=== PATIENT | male | born 1940 | race Caucasian/White ===

== ENCOUNTER 2017-11-24 05:15 | Inpatient (IN) | payer OTHER ==
--- NOTE | 2017-10-15 11:46 | PAT Medication Instructions ---
Service Date Oct 15, 2017. Current Home Medication List Amlodipine (Norvasc), 5 MG PO QAM Ascorbic Acid (Vitamin C), 1 TAB PO QAM Aspirin (Aspirin Ec), 81 MG PO QDD Brinzolamide Oph (Azopt Oph), 1 DROPS OP BID Cinnamon (Cinnamon Extract), 1 CAP PO QAM Coenzyme Q10 (Ubidecarenone) (Coq10), 1 CAP PO QDD Cranberry (Vaccinium Macrocarp (Cranberry), Unknown Dose PO QAM Dorzolamide Hcl (Trusopt Oph), 1 DROPS OP BID Finasteride (Proscar), 5 MG PO QDL Fish Oil ([place]-3), 1 CAP PO QPM Garlic (Garlic), 600 MG PO QAM Latanoprost (Xalatan 0.005% Oph Brigitte), 1 DROPS OP QAM Losartan Potassium (Losartan Potassium), 100 MG PO QAM Misc Natural Products (Lutein 20), 1 CAP PO QPM Multivitamin (Multivitamin), 1 TAB PO QAM Psyllium (Metamucil), 1 DOSE PO UD PRN for QAM Saccharomyces Boulardii (Probiotic), Unknown Dose PO QAM Simvastatin (Zocor), 20 MG PO QPM Tamsulosin HCl (Tamsulosin HCl), 1 CAP PO QAM [Reflux Med ], Unknown Dose PO QAM Medication Instructions For Your Scheduled Surgery - Hold the following medications 2 weeks prior to surgery: Cinnamon (Cinnamon Extract), 1 CAP PO QAM Coenzyme Q10 (Ubidecarenone) (Coq10), 1 CAP PO QDD Cranberry (Vaccinium Macrocarp (Cranberry), Unknown Dose PO QAM Fish Oil ([place]-3), 1 CAP PO QPM Garlic (Garlic), 600 MG PO QAM Misc Natural Products (Lutein 20), 1 CAP PO QPM - Hold the following medications the morning of surgery: Ascorbic Acid (Vitamin C), 1 TAB PO QAM Losartan Potassium (Losartan Potassium), 100 MG PO QAM Multivitamin (Multivitamin), 1 TAB PO QAM Psyllium (Metamucil), 1 DOSE PO UD PRN for QAM Saccharomyces Boulardii (Probiotic), Unknown Dose PO QAM Tamsulosin HCl (Tamsulosin HCl), 1 CAP PO QAM - Take the following medications the morning of surgery with a sip of water: Amlodipine (Norvasc), 5 MG PO QAM Brinzolamide Oph (Azopt Oph), 1 DROPS OP BID (bring this with you to the hospital) Dorzolamide Hcl (Trusopt Oph), 1 DROPS OP BID (bring this with you to the hospital) Latanoprost (Xalatan 0.005% Oph Brigitte), 1 DROPS OP QAM (bring this with you to the hospital) [Reflux Med ], Unknown Dose PO QAM - Take the following medications as scheduled the night before surgery: Aspirin (Aspirin Ec), 81 MG PO QDD Brinzolamide Oph (Azopt Oph), 1 DROPS OP BID Dorzolamide Hcl (Trusopt Oph), 1 DROPS OP BID Finasteride (Proscar), 5 MG PO QDL Simvastatin (Zocor), 20 MG PO QPM If you have any questions please call us at [phone] or [phone] or [phone]
--- NOTE | 2017-10-15 12:38 | DIAGNOSTIC IMAGING REPORT ---
CHEST 2 VIEWS ROUTINE HISTORY: 77 years-old Male PAT preoperative exam. No acute chest complaints COMPARISON: Chest radiograph 11/30/2008, CT chest 09/02/2009 TECHNIQUE: PA and lateral views of the chest FINDINGS: Cardiac silhouette is mildly enlarged, unchanged. Atherosclerosis of the aorta. There is no pneumothorax, pleural effusion, focal airspace consolidation or overt pulmonary edema. Mild right hemidiaphragmatic elevation. Postoperative changes about the left humeral head. Degenerative changes of the spine and shoulders. IMPRESSION: No acute process. The above report was generated using voice recognition software. It may contain grammatical, syntax or spelling errors. Electronically signed by: Saravanan Camejo M.D. 10/15/2017 12:36 PM Dictated Date/Time: 10/15/2017 12:34 PM
[2017-10-15 12:44] LABS: BASO % 0.6 %; BASO ABS # 0.05 K/uL (0-0.2); EOS % 2.2 %; HEMATOCRIT 38.7 % (42-52); HEMOGLOBIN 13.7 g/dL (14.0-18.0); IG# 0.02 K/uL (0.00-0.02); LYMPH % 24.9 %; LYMPH ABS # 2.25 K/uL (1.2-3.4); MEAN CELL VOLUME 88.8 fL (80-100); MEAN CORPUSCULAR HEMOGLOBIN 31.4 pg (25-34); MEAN CORPUSCULAR HGB CONC 35.4 g/dl (32-36); MONO % 7.2 %; MONO ABS # 0.65 K/uL (0.11-0.59); NEUT % 64.9 %; NEUT ABS # 5.86 K/uL (1.4-6.5); PLATELET COUNT 278 K/uL (130-400); RED CELL DISTRIBUTION WIDTH CV 12.3 % (11.5-14.5); RED CELL DISTRIBUTION WIDTH SD 39.4 fL (36.4-46.3); WHITE BLOOD COUNT 9.03 K/uL (4.8-10.8)
[2017-10-15 13:00] LABS: PTT PATIENT 23.6 SECONDS (21.0-31.0)
[2017-10-15 13:27] LABS: HEMOGLOBIN A1C 6.6 % (4.5-5.6)
[2017-10-15 13:43] LABS: ALBUMIN 3.7 gm/dl (3.4-5.0); CALCIUM 8.8 mg/dl (8.5-10.1); CREATININE 0.81 mg/dl (0.60-1.40); POTASSIUM 4.2 mmol/L (3.5-5.1)
--- NOTE | 2017-11-23 14:28 | HISTORY & PHYSICAL EXAMINATION ---
DATE OF ADMISSION: 11/24/2017 CHIEF COMPLAINT: Chronic left hip pain. HISTORY OF PRESENT ILLNESS: This is a 77-year-old male patient of Dr. Roberts who is complaining of chronic left hip pain, longstanding, now progressively has been getting worse. The patient has failed conservative treatment including the use of [id number] analgesics and physical therapy. He has been diagnosed with end-stage osteoarthritis per clinical and radiographic exams. The patient has increased pain with weightbearing activities, and his pain does interfere with his activities of daily living. PAST MEDICAL HISTORY: Hypertension, hypercholesterolemia, osteoarthritis, sciatica, prostate cancer, BPH. SOCIAL HISTORY: Nonsmoker, nondrinker. PAST SURGICAL HISTORY: Prostate surgery, right hip surgery, and left shoulder surgery. FAMILY HISTORY: Noncontributory. REVIEW OF SYSTEMS: Chronic left hip pain, otherwise denies any shortness of breath, chest pain, nausea, vomiting, or any other joint complaints. MEDICATIONS: 1. Amlodipine 5 mg q.a.m. 2. Losartan 100 mg q.a.m. 3. Tamsulosin 0.4 mg one-half hour before breakfast daily. 4. Latanoprost ophthalmic solution 0.005%, both eyes daily. 5. Dorzolamide 2% ophthalmic 2 drops in both eyes b.i.d. 6. Finasteride 5 mg daily. 7. Simvastatin 20 mg daily. 8. Sherlyn Vitamin C 500 mg daily. 9. Cinnamon 500 mg daily. 10. Garlic 600 mg daily. 11. One multivitamin daily. 12. Probiotic 10 daily. 13. Cranberry 25,000 mg daily. 14. Aspirin 81 mg daily. 14. [place] 3 fish oil 1000 mg daily. 15. Lutein 20 mg daily. 16. CoQ10 of 100 mg daily. ALLERGIES: No known drug allergies. PHYSICAL EXAMINATION: GENERAL: Well-developed and well-nourished 77-year-old male, in no acute distress. He is alert and oriented x3 and pleasant. HEENT: He is normocephalic and atraumatic. Extraocular motions are intact. Pupils equal and reactive to light. HEART: Regular rate and rhythm. No murmurs appreciated. RESPIRATORY: Lungs are clear. GASTROINTESTINAL: Abdomen is soft and nontender. Bowel sounds are present. MUSCULOSKELETAL: Left hip reveals no flexion contracture. He has pain with passive internal and external rotation at 90 degrees as well as pain with passive log rolling. The patient has 4/5 strength in the hip with pain. NEUROLOGIC: Neurovascularly intact in the left lower extremity. DIAGNOSES: Left hip end-stage osteoarthritis, hypertension, hypercholesterolemia, borderline diabetes, sciatica, prostate cancer, BPH. PLAN: The patient was advised of his diagnosis. Indications, risks, benefits, postop course have all been reviewed. The patient wished to proceed with a left total hip arthroplasty. Necessary consent forms and preoperative testing clearances will be obtained.
[~2017-11-24] VITALS: Ht 167.6 cm; Wt 84.1 kg
[2017-11-24] VITALS (8 sets, daily range): BP systolic 137–185; BP diastolic 64–90; PULSE 57–72; TEMP 36.5; O2SAT 95–99; Ht 167.6 cm; Wt 84.1 kg
[~2017-11-24 05:15] MED LIST: ACETAMINOPHEN 500 MG TAB PO SCH; AMLO-110 PO; ASCA500 PO; ASPI81TA28 PO; BRIN1SUS OP; CEFAZOLIN 2000MG IV PUSH 15 ML IV SCH; CINN500C13 PO; COEN100C7 PO; CRAN500C2 PO; CZR50 PO; CeleBREX 200 MG CAP PO SCH; DORZ2SOL19 OP; FAMOTIDINE 20 MG TAB PO SCH; FINA5TAB PO; FLM4 PO; GABAPENTIN 300 MG CAP PO SCH; GARL1200 PO; LACTATED RINGER'S 1000ML 1,000 ML IV SCH; LACTATED RINGER'S 1000ML 500 ML IV SCH; LATA0.5S OP; METOCLOPRAMIDE HCL 10 MG TAB PO SCH; MISC1CAP58 PO; MULT-506 PO; OMEG10007 PO; PSYL48.59 PO; REFLUX MED PO; ROPIVACAINE 5MG/ML 30 ML 150 MG, BUPIVACAINE 0.5% MPF INJ 30 ML, EpINEphrine HCL INJ 0.... INFIL SCH; SACC250C11 PO; SIMV10TA2 PO; TRANEXAMIC ACID INJ 1,000 MG x 1 Bag Intra-Op IV SCH; TRANEXAMIC ACID INJ 1,000 MG x 1 Bag Preop IV SCH
[2017-11-24] MEDS ORDERED: CEFAZOLIN 2000MG IV PUSH 15 ML IV SCH (06:00)
[2017-11-24] MEDS ORDERED: GABAPENTIN 300 MG CAP PO SCH (06:00)
[2017-11-24] MEDS ORDERED: ACETAMINOPHEN 500 MG TAB PO SCH (06:00)
[2017-11-24] MEDS ORDERED: ROPIVACAINE 5MG/ML 30 ML 150 MG, BUPIVACAINE 0.5% MPF INJ 30 ML, EpINEphrine HCL INJ 0.... INFIL SCH ×7 (06:00)
[2017-11-24] MEDS ORDERED: LACTATED RINGER'S 1000ML 500 ML IV SCH (06:00)
[2017-11-24] MEDS ORDERED: LACTATED RINGER'S 1000ML 1,000 ML IV SCH (06:00)
[2017-11-24] MEDS ORDERED: FAMOTIDINE 20 MG TAB PO SCH (06:00)
[2017-11-24] MEDS ORDERED: METOCLOPRAMIDE HCL 10 MG TAB PO SCH (06:00)
[2017-11-24] MEDS ORDERED: CeleBREX 200 MG CAP PO SCH (06:00)
[2017-11-24] MEDS: TRANEXAMIC ACID INJ 1,000 MG x 2 Bags IV SCH ×4 (06:30→07:09)
[2017-11-24] MEDS ORDERED: BUPIVACAINE 0.5 % 5 MG/1 ML PF 10ML VIAL ONE (06:31)
[2017-11-24] MEDS ORDERED: MIDAZOLAM HCL 1 MG/ML 2ML VIAL ONE (06:49)
[2017-11-24] MEDS ORDERED: FENTANYL CITRATE INJ 50 MCG/1 ML 2 ML VIAL ONE (06:49)
[2017-11-24] MEDS ORDERED: BACITRACIN 50000 UNIT VIAL ONE (06:55)
[2017-11-24] MEDS ORDERED: ORTHO JOINT ANESTHETIC ONE (06:55)
[2017-11-24] MEDS ORDERED: POVIDONE-IODINE OP SOLN 30 ML BTL ONE (06:55)
--- NOTE | 2017-11-24 07:11 | History & Physical Bridge Note ---
H&P Re-Evaluation Bridge Note: I have examined the patient, reviewed the History & Physical and in the interval since the performance of the History & Physical I have noted the following changes of clinical significance: No changes noted
[2017-11-24] MEDS ORDERED: PROPOFOL IV EMULSION 10 MG/ML 20 ML VIAL ONE (08:06)
[2017-11-24] MEDS ORDERED: MEPERIDINE HCL 25 MG/ML CARP IV PRN (09:15)
[2017-11-24] MEDS ORDERED: ATROPINE SULFATE 0.1 MG/ML 5ML SYR IV PRN (09:15)
[2017-11-24] MEDS ORDERED: LABETALOL HCL IV 5 MG/ML 20ML IV PRN (09:15)
[2017-11-24] MEDS ORDERED: HYDROmorphone INJ 2 MG/ML SYR/VIAL IV PRN (09:15)
[2017-11-24] MEDS ORDERED: EpHEDrine SULFATE INJ 50 MG/ML AMP IV PRN (09:15)
[2017-11-24] MEDS ORDERED: ONDANSETRON INJ 2 MG/ML 2 ML VIAL IV PRN ×2 (09:15→10:30)
[2017-11-24] MEDS ORDERED: FENTANYL CITRATE INJ 50 MCG/1 ML 2 ML VIAL IV PRN (09:15)
--- NOTE | 2017-11-24 09:56 | [facility] Post Operative Brief Note ---
Immediate Operative Summary Operative Date November 24, 2017. Pre-Operative Diagnosis Left Hip End Stage Osteoarthritis Post-Operative Diagnosis Left Hip End Stage Osteoarthritis Procedure(s) Performed Left Total Hip Arthroplasty-Uncemented Surgeon Dr. Sung Roberts Generating Plant Superintendent Surgeon(s) David Amado PA-C Estimated Blood Loss 125 ml Findings Consistent with Post-Op Diagnosis Specimens A. Left Femoral Head Drains 2 hemovac Anesthesia Type Spinal MAC Complication(s) none
--- NOTE | 2017-11-24 10:13 | [facility] Operative Report ---
Operative Report Operative Date November 24, 2017. Pre-Operative Diagnosis Left Hip End Stage Osteoarthritis Post-Operative Diagnosis Same Procedure(s) Performed Left total hip arthroplasty Surgeon Dr. Sung Roberts Band Straightener Surgeon(s) David Amado PA-C Estimated Blood Loss 125 ml Findings Osteoarthritis left hip with some protrusio type pattern medial wear acetabulum and femoral head with femoral neck osteophytes and loose body. Specimens A. Left Femoral Head Drains 2 hemovac Anesthesia Spinal sedation orthomix Complication(s) None Disposition Recovery Room / PACU Indications Failed conservative management moderately severe left hip osteoarthritis. X- rays demonstrate significant hip joint space narrowing close to [id number] with protrusio type medial wear pattern. History of prior successful right hip replacement in the past. Description of Procedure Patient taken to the operating room and anesthetized under spinal anesthesia. Patient was placed supine on the operating table. Exam of the involved extremity demonstrated good hip flexion to about 110 with limited internal rotation and limited abduction. Patient is a thin individual..The patient was placed on a sacral pad and the involved leg was placed on a foot bump to flex knee 90 and hip 60. I placed a towel under his lumbar spine to support the lumbar region. A Perry-type approach was performed to the left hip. A longitudinal lateral incision was made over the hip. The skin was incised sharply. The fat was divided down to the fascia. Subcutaneous bleeders are cauterized. Trochanteric bursa was resected. A split was made in the gluteus medius muscle between the anterior 40% and posterior 60%. The minimus was divided longitudinally reflected off the underlying capsule. The capsule was incised down to the hip joint. Intra-articular findings demonstrated more of a medial protrusio type pattern of wear with articular erosion and femoral neck osteophytes and a very large labrum.. An incision was made through the gluteus medius leaving a cuff of tendon for repair on the greater trochanter. The hip was dislocated with use of bone hook and with flexion and external rotation of the hip. The femoral neck cut was made approximately 15 mm proximal to the lesser trochanter in neutral anteversion. Head and neck fragment were removed. A self-retaining superior tractor was impacted into the ilium, a blunt Beck retractor was placed anteriorly a double angled inferior retractor was placed on the ischium. The acetabular labrum was resected all osteophytes were resected.The soft tissue in the acetabular fossa was resected. An anterior capsular release was performed. Some the capsule was resected for exposure. The first reamer was used to medialize reaming to the inner table and then sequential reamers for the acetabulum were used in 2 mm increments up to a size 56 mm. I used the [employer] total hip arthroplasty system using a PSL type cup. Trial reduction demonstrated a 56 millimeter cup was the appropriate size and fit. The placement of the final implant was performed after irrigating the acetabulum with antibiotic solution with pulsatile lavage. The position of the cup was approximately 15 anteversion 45 abduction. Good fixation was performed. 2 screws were placed in the posterior superior quadrant for further fixation through the cup. The acetabular liner was impacted into position. The 36 mm 10 high wall acetabular liner was used. Retractors removed and attention was taken to the femur. The femur was exposed with flexion external rotation. Canal reamer was used followed by sequential broaches up to a size 4. This had a good fit and fill. Trial reduction was performed with a 127 neck angle based on preoperative templating. A + 0 neck length gave equal leg lengths and stable range of motion through full flexion flexion adduction and internal rotation and extension and external rotation. The trials removed and after irrigation again and the final implant was impacted which was the Accolade 2 size 4. The [employer] ceramic head size 36 was used. After final implants replaced the reduction was noted to be stable. 2 drains were placed deep. These were brought out laterally and connected to Hemovac. The minimus was closed with interrupted [id number] #1 Vicryl sutures. The medius was closed with transosseous #5 FiberWire sutures using John Tone suture technique. Lateral row soft tissue repair was performed with figure of 8 #2 FiberWire sutures. The medius split was closed with interrupted figure-of- eight #1 Vicryl sutures. The vastus lateralis was closed with interrupted figure of eight #1Vicryl sutures. The fascia jyoti was closed with interrupted figure of eight #1 Vicryl sutures. The fat was closed with [id number] #2 Vicryl sutures. Skin was closed with terry and sterile dressings were applied. The patient tolerated procedure well. David RANDOLPH my physician assistant head cashier assisted me in the procedure with patient positioning And draping soft tissue retraction instrument management suture management and assisted in the outer layer closure and will participate in the postoperative care the patient. I attest to the content of the Intraoperative Record and any orders documented therein. Any exceptions are noted below.
[2017-11-24] MEDS ORDERED: ZOLPIDEM TARTRATE 5 MG TAB PO PRN (10:30)
[2017-11-24] MEDS ORDERED: MoRPHine SULFATE 4 MG/ML 1 ML CARP\\VIAL IV PRN (10:30)
[2017-11-24] MEDS ORDERED: METOCLOPRAMIDE HCL INJ 5 MG/ML 2 ML VIAL IV PRN (10:30)
[2017-11-24] MEDS ORDERED: TRAMADOL HCL 50 MG TAB PO PRN (10:30)
[2017-11-24] MEDS ORDERED: BISACODYL 10 MG SUPP PR PRN (10:30)
[2017-11-24] MEDS ORDERED: SOD PHOSPHATE/SOD BIPHOSPHATE ENEMA 132 ML BTL PR PRN (10:30)
[2017-11-24] MEDS ORDERED: MAGNESIUM HYDROXIDE SUSP 30 ML UDC PO PRN (10:30)
[2017-11-24] MEDS ORDERED: PSYLLIUM 58.6% PWD PACK S\\F PO PRN (10:30)
--- NOTE | 2017-11-24 10:45 | Anesthesiology Progress Note ---
Anesthesia Post Op Note Date & Time November 24, 2017 at 10:44 Vital Signs Pain Intensity: 0 Vital Signs Past 12 Hours Date Time Temp Pulse Resp B/P (MAP) Pulse Ox O2 Delivery O2 Flow Rate FiO2 11/24/17 10:39 36.4 98 Room Air 11/24/17 10:37 57 21 11/24/17 10:37 57 21 98 11/24/17 10:36 158/73 11/24/17 10:32 61 22 157/59 99 11/24/17 10:32 60 22 11/24/17 10:27 59 18 134/65 98 11/24/17 10:27 59 18 11/24/17 10:22 56 17 11/24/17 10:22 58 17 99 11/24/17 10:21 57 18 159/72 99 11/24/17 10:21 55 18 11/24/17 10:16 58 25 11/24/17 10:16 61 25 137/59 98 11/24/17 10:12 141/72 11/24/17 10:11 36.1 56 12 141/72 95 Nasal Cannula 2 11/24/17 10:11 60 19 96 11/24/17 10:11 60 19 11/24/17 05:45 36.5 66 20 185/90 99 Room Air Notes Neuraxial Anesthesia: was administered, sensory block is resolving
--- NOTE | 2017-11-24 10:55 | DIAGNOSTIC IMAGING REPORT ---
L PELVIS/UNILATERAL HIP 1 VIEW CLINICAL HISTORY: 77 years-old Male presenting with IN PACU - A/P PELVIS and LATERAL HIP INCLUDING ALL OF IMPLANT. TECHNIQUE: Frontal and crosstable lateral views of the left hip were obtained. COMPARISON: 11/28/2008. FINDINGS: Postsurgical changes of total left hip arthroplasty. A surgical drain and skin terry are in place. Expected soft tissue emphysema. Redemonstration of postsurgical changes of right total hip arthroplasty. The bony pelvis and proximal femurs are intact. No evidence of a periprosthetic fracture. No malalignment. IMPRESSION: 1. Expected postsurgical appearance status post total left hip arthroplasty. 2. Redemonstration of total right hip arthroplasty. Electronically signed by: Israel Richards M.D. 11/24/2017 10:54 AM Dictated Date/Time: 11/24/2017 10:53 AM
[2017-11-24] MEDS: OXYCODONE HCL IR 5 MG TAB (IMMEDIATE RELEASE) PO PRN ×3 (12:03→19:41)
[2017-11-24] MEDS ORDERED: SODIUM CHLORIDE 0.9% 1000ML 1,000 ML IV SCH (12:10)
[2017-11-24] MEDS ORDERED: GLUCAGON FOR INJ 1 MG VIAL IM PRN (12:30)
[2017-11-24] MEDS ORDERED: DEXTROSE 50% 50 ML SYR IV PRN (12:30)
[2017-11-24] MEDS ORDERED: CARBOHYDRATES FOR HYPOGLYCEMIA PO PRN (12:30)
[2017-11-24] MEDS ORDERED: GLUCOSE 40% GEL 15 GM TUBE PO PRN (12:30)
[2017-11-24] MEDS ORDERED: GLUCOSE 10 TABS/TUBE PO PRN (12:30)
--- NOTE | 2017-11-24 12:43 | Medical Consult ---
Consultation Date of Consultation: November 24, 2017. Attending Physician: Sung Roberts M.D. Reason for Consultation: post-op medical mgmt History of Present Illness This is a 77yo M with a PMH of HTN, HLD, DM II (diet controlled), BPH and osteoarthritis who is POD #0 s/p L RAMIREZ by Dr. Roberts. Patient is doing well post-operatively. States that hip pain is a 6/10 but received pain medication 10 minutes ago. Denies any, fever, chills, lightheadedness, headache, visual changes, sore throat, CP, SOB, abdominal pain, nausea, vomiting, dysuria or LE swelling. PCP is Carroll MILLER with [facility] in [place]. Has DM II that is diet controlled. Most recent hgb a1c was 6.6 in September 2017. Past Medical/Surgical History Medical Problems: (1) Aortic regurgitation Status: Chronic (2) BPH (benign prostatic hyperplasia) Status: Chronic (3) Degenerative joint disease of left hip Status: Chronic (4) Diabetes mellitus type II, controlled Status: Chronic (5) H/O malignant neoplasm of prostate Status: Chronic (6) HLD (hyperlipidemia) Status: Chronic (7) HTN (hypertension) Status: Chronic (8) Osteoarthritis Status: Chronic Surgical Problems: (1) Status post right hip replacement Status: Resolved Family History Diabetes mellitus Hypertension Social History Smoking Status: Never Smoker Alcohol Use: none Marital Status: Housing Status: lives with significant other Allergies Coded Allergies: Lisinopril (Verified Adverse Reaction, Unknown, BAD COUGH, 11/24/17) Home Medications Reported Home Medications Medications Dose Route/Sig Max Daily Dose Days Date Category Dose Instructions Metamucil (Psyllium) 48.57 % Pow 1 Dose PO UD PRN 10/15/17 Reported [Reflux Med ] Unknown Strength Unknown Dose PO QAM 10/15/17 Reported PT NOT SURE DETAILS OF MED - REPORTS TAKES MED FOR ACID REFLUX Coq10 (Coenzyme Q10 (Ubidecarenone)) 100 Mg Cap 1 Cap PO QDD 10/15/17 Reported Lutein 20 (Misc Natural Products) 1 Cap Cap 1 Cap PO QPM 10/15/17 Reported Cranberry (Cranberry (Vaccinium Macrocarp) Unknown Strength Cap Unknown Dose PO QAM 10/15/17 Reported Probiotic (Saccharomyces Boulardii) Unknown Strength Cap Unknown Dose PO QAM 10/15/17 Reported Garlic 1,200 Mg Cap 600 Mg PO QAM 10/15/17 Reported Cinnamon Extract (Cinnamon) 500 Mg Cap 1 Cap PO QAM 10/15/17 Reported Proscar (Finasteride) 5 Mg Tab 5 Mg PO QDL 10/15/17 Reported Trusopt Oph (Dorzolamide Hcl) 2 % Brigitte 1 Drops OP BID 10/15/17 Reported Xalatan 0.005% Oph Brigitte (Latanoprost) 0.005 % Brigitte 1 Drops OP QAM 10/15/17 Reported Tamsulosin HCl 0.4 Mg Cap 1 Cap PO QAM 10/15/17 Reported Norvasc (Amlodipine Besylate) 5 Mg Tab 5 Mg PO QAM 10/15/17 Reported Aspirin Ec (Aspirin) 81 Mg Tab 81 Mg PO QDD 10/15/17 Reported Losartan Potassium 50 Mg Tab 100 Mg PO QAM 10/15/17 Reported Multivitamin (Multivitamins) Tab 1 Tab PO QAM 10/15/17 Reported Vitamin C (Ascorbic Acid) 500 Mg Tab 1 Tab PO QAM 10/15/17 Reported Mutual-3 (Fish Oil) 1 Ea Cap 1 Cap PO QPM 11/14/08 Reported Zocor (Simvastatin) 10 Mg Tab 20 Mg PO QPM 11/14/08 Reported Current Inpatient Medications Current Inpatient Medications Medications (Trade) Dose Ordered Sig/Isabelle Route Start Time Stop Time Status Last Admin Dose Admin Lactated Ringer's 1,000 ml @ 15 mls/hr Q24H IV 11/24/17 06:00 11/25/17 05:59 11/24/17 05:52 15 MLS/HR Cefazolin Sodium 15 ml @ 3.75 mls/ min PREOP IV 11/24/17 06:00 11/24/17 18:00 Acetaminophen (Tylenol Tab) 1,000 mg PREOP PO 11/24/17 06:00 11/24/17 18:00 11/24/17 06:09 1,000 MG Celecoxib (CeleBREX CAP) 200 mg PREOP PO 11/24/17 06:00 11/24/17 18:00 11/24/17 06:09 200 MG Famotidine (Pepcid Tab) 20 mg PREOP PO 11/24/17 06:00 11/24/17 18:00 11/24/17 06:08 20 MG Gabapentin (Neurontin Cap) 300 mg PREOP PO 11/24/17 06:00 11/24/17 18:00 11/24/17 06:08 300 MG Metoclopramide HCl (Reglan Tab) 10 mg PREOP PO 11/24/17 06:00 11/24/17 18:00 11/24/17 06:08 10 MG Fentanyl Citrate (Fentanyl Inj) 50 mcg Q5M PRN IV 11/24/17 09:15 11/25/17 14:15 Hydromorphone HCl (Dilaudid Inj) 0.5 mg Q5M PRN IV 11/24/17 09:15 11/25/17 14:15 Meperidine HCl (Demerol Inj) 25 mg Q5M PRN IV 11/24/17 09:15 11/24/17 14:15 Ondansetron HCl (Zofran Inj) 4 mg ONE PRN IV 11/24/17 09:15 11/25/17 14:15 Labetalol HCl (Normodyne IV) 5 mg Q5M PRN IV 11/24/17 09:15 11/25/17 14:15 Ephedrine Sulfate (EpHEDrine SULFATE INJ) 5 mg Q5M PRN IV 11/24/17 09:15 11/25/17 14:15 Atropine Sulfate (Atropine Sulfate 0.1mg/ml Inj) 0.5 mg Q1M PRN IV 11/24/17 09:15 11/25/17 14:15 Amlodipine Besylate (Norvasc Tab) 5 mg QAM PO 11/25/17 09:00 12/25/17 08:59 Ascorbic Acid (Vitamin C Tab) 500 mg QAM PO 11/25/17 09:00 12/25/17 08:59 Dorzolamide HCl (Trusopt 2% Oph Soln) 1 drops BID OP 11/24/17 21:00 12/24/17 20:59 Finasteride (Proscar Tab) 5 mg QDL PO 11/24/17 12:30 12/24/17 12:29 Latanoprost (Xalatan Oph Soln) 1 drops QAM OP 11/25/17 09:00 12/25/17 08:59 Losartan Potassium (coZAAR TAB) 100 mg QAM PO 11/25/17 09:00 12/25/17 08:59 Simvastatin (Zocor Tab) 20 mg QPM PO 11/24/17 21:00 12/24/17 20:59 Tamsulosin HCl (Flomax Cap) 0.4 mg QAM PO 11/25/17 09:00 12/25/17 08:59 Psyllium Hydrophilic Mucilloid (Metamucil Powder) 1 pkt UD PRN PO 11/24/17 10:30 12/24/17 10:29 Sodium Chloride 1,000 ml @ 100 mls/hr Q10H IV 11/24/17 12:10 11/25/17 12:09 Celecoxib (CeleBREX CAP) 200 mg BID PO 11/24/17 21:00 12/24/17 20:59 Oxycodone HCl (Roxicodone Immediate Rel Tab) 1 TABLET FOR PAIN RATING... Q4H PRN PO 11/24/17 10:30 12/08/17 10:29 11/24/17 12:03 10 MG Morphine Sulfate (MoRPHine SULFATE INJ) as needed Q2H PRN IV 11/24/17 10:30 12/08/17 10:29 Acetaminophen (Tylenol Tab) 1,000 mg Q8 PO 11/24/17 14:00 12/24/17 13:59 Magnesium Hydroxide (Milk Of Magnesia Susp) 30 ml Q6H PRN PO 11/24/17 10:30 12/24/17 10:29 Bisacodyl (Dulcolax Supp) 10 mg DAILY PRN ME 11/24/17 10:30 12/24/17 10:29 Sodium Biphosphate/ Sodium Phosphate (Fleet Enema) 132 ml DAILY PRN ME 11/24/17 10:30 12/24/17 10:29 Docusate Sodium (coLACE CAP) 100 mg BID PO 11/24/17 21:00 12/24/17 20:59 Diphenhydramine HCl (Benadryl Cap) 25 mg Q8H PRN PO 11/24/17 10:30 12/24/17 10:29 Zolpidem Tartrate (Ambien Tab) 5 mg HSZ PRN PO 11/24/17 10:30 12/24/17 10:29 Multivitamins (Multivitamin Tab) 1 tab QAM PO 11/25/17 09:00 12/25/17 08:59 Ondansetron HCl (Zofran Inj) 4 mg Q6H PRN IV 11/24/17 10:30 12/24/17 10:29 Metoclopramide HCl (Reglan Inj) 10 mg Q6H PRN IV 11/24/17 10:30 12/24/17 10:29 Pantoprazole Sodium (Protonix Tab) 40 mg QAM PO 11/25/17 09:00 11/28/17 08:59 Tramadol HCl (Ultram Tab) 1 TABLET FOR PAIN RATING... Q4H PRN PO 11/24/17 10:30 12/24/17 10:29 Cefazolin Sodium 2000 mg/Syringe 15 ml @ 3.75 mls/ min Q8H IV 11/24/17 17:30 11/25/17 01:33 Aspirin (Ecotrin Tab) 81 mg BID PO 11/24/17 21:00 12/24/17 20:59 Insulin Aspart (novoLOG ASPART) SLIDING SCALE G... ACHS SC 11/24/17 12:00 12/24/17 11:59 Glucose (Glucose 40% Gel) 15-30 GRAMS 15 GRAMS... UD PRN PO 11/24/17 12:30 12/24/17 12:29 Glucose (Glucose Chew Tab) 4-8 Tablets 4 Tabl... UD PRN PO 11/24/17 12:30 12/24/17 12:29 Dextrose (Dextrose 50% 50ML Syringe) 25-50ML 25ML FOR ... UD PRN IV 11/24/17 12:30 12/24/17 12:29 Glucagon (Glucagon Inj) 1 mg UD PRN IM 11/24/17 12:30 12/24/17 12:29 Carbohydrates (Carbohydrates For Hypoglycemia) 15-30 GRAMS 15 grams if BSG 54-69... UD PRN PO 11/24/17 12:30 12/24/17 12:29 Review of Systems Ten systems reviewed and negative except as noted in the HPI. Physical Exam Date Time Temp Pulse Resp B/P (MAP) Pulse Ox O2 Delivery O2 Flow Rate FiO2 11/24/17 11:50 57 17 166/70 (102) 96 11/24/17 11:20 70 16 181/76 (111) 99 Room Air 11/24/17 10:55 99 Room Air 11/24/17 10:50 36.5 61 17 178/87 (117) 98 Room Air 11/24/17 10:50 98 Room Air 11/24/17 10:43 59 98 11/24/17 10:43 59 11/24/17 10:41 152/78 11/24/17 10:39 36.4 98 Room Air 11/24/17 10:38 56 18 11/24/17 10:38 55 18 98 11/24/17 10:37 57 21 11/24/17 10:37 57 21 98 11/24/17 10:36 158/73 11/24/17 10:32 61 22 157/59 99 11/24/17 10:32 60 22 11/24/17 10:27 59 18 134/65 98 11/24/17 10:27 59 18 11/24/17 10:22 56 17 11/24/17 10:22 58 17 99 11/24/17 10:21 57 18 159/72 99 11/24/17 10:21 55 18 11/24/17 10:16 58 25 11/24/17 10:16 61 25 137/59 98 11/24/17 10:12 141/72 11/24/17 10:11 36.1 56 12 141/72 95 Nasal Cannula 2 11/24/17 10:11 60 19 96 11/24/17 10:11 60 19 11/24/17 05:45 36.5 66 20 185/90 99 Room Air General Appearance: WD/WN, no apparent distress, + pertinent finding (resting comfortably) Head: normocephalic, atraumatic Eyes: normal inspection, PERRL, sclerae normal ENT: normal ENT inspection, hearing grossly normal, pharynx normal (moist mucous membranes ) Neck: supple, thyroid normal, trachea midline Respiratory/Chest: chest non-tender, lungs clear, normal breath sounds, no respiratory distress, no accessory muscle use Cardiovascular: regular rate, rhythm, no murmur, normal peripheral pulses Abdomen/GI: non tender, soft, no organomegaly Back: normal inspection Extremities/Musculoskelatal: normal inspection (L hip with surgical bandage. Clean, dry, intact. Drain visualized. ), no calf tenderness, normal capillary refill, no pedal edema, + pertinent finding (SCDs) Neurologic/Psych: no motor/sensory deficits, alert, normal mood/affect, oriented x 3 Skin: normal color, warm/dry Laboratory Results Last 24 Hours Test 11/24/17 05:26 11/24/17 10:30 Bedside Glucose 136 mg/dl 115 mg/dl Assessment & Plan This is a 77yo M with a PMH of HTN, HLD, DM II (diet controlled), BPH and osteoarthritis who is POD #0 s/p L RAMIREZ by Dr. Roberts. Left hip osteoarthritis POD #0 s/p L RAMIREZ: -Performed by Dr. Roberts -Doing well post-operatively -Per ortho for pain control, wound care, anticoagulation and activities -Monitor H&H, continue incentive spirometry, PT/OT when appropriate DM II: -A1c 6.6 in September 2017 -Diet controlled -Monitor HTN: -Slightly elevated 2/2 pain -Cont home amlodipine, losartan -Monitor and give additional agents if needed HLD: -Cont statin BPH: -Cont finasteride, tamsulosin PCP: ANGELA Hodges Dispo: Per ortho Patient seen in collaboration with Dr. Daley. Please see addendum. Thank you for this consultation. We will follow the patient with you during their hospital stay. You can reach a member of the [facility] Hospitalist Team 15/02 via pager @ [phone]. ATTENDING ADDENDUM Patient seen and examined, care coordinated with Aed Ordonez PA-C This is a 77-year-old male with medical history of hypertension and diet- controlled diabetes hyperlipidemia, underwent left total hip replacement surgery for end-stage osteoarthritis Patient had the surgery done approximately 8 AM today; postoperative day 0 Mentions pain is fairly well-controlled To 2 tablets of oxycodone earlier No complaint of shortness of breath, headache, chest heaviness Physical exam: Please refer to physical exam by Ade Ordonez PA-C ASSESSMENT AND PLAN HYPERTENSION Blood pressure is a significantly elevated with systolic 180 Patient's home medications include Patient took Norvasc 5 mg this a.m. preop as instructed Denies of any symptoms of headache heaviness or shortness of breath Reports he usually gets white coat hypertension/blood pressure always gets elevated in clinic visits Was anxious this morning for surgery Ordered to give losartan 100 mg tablet 1 now Continue Norvasc 5 mg daily/losartan 100 mg daily Repeat blood pressure in 1-1/2 hour As needed IV labetalol ordered by orthopedics STATUS POST LEFT HIP SURGERY Recovering well postop Continue management as per orthopedics Please refer to further documentation by Ade Ordonez PA-C for discussion of other chronic issues Mary Daley MD
[2017-11-24] MEDS ORDERED: AMLODIPINE BESYLATE 5 MG TAB PO ONE (13:05)
[2017-11-24] MEDS ORDERED: LOSARTAN POTASSIUM 50 MG TAB PO ONE (13:16)
[2017-11-24] MEDS: FINASTERIDE 5 MG TAB PO SCH (13:23)
[2017-11-24] MEDS: INSULIN ASPART 100 UNITS/ML 3 ML PEN SC SCH ×3 (13:28→21:41)
[2017-11-24] MEDS: ACETAMINOPHEN 500 MG TAB PO SCH ×2 (13:30→21:44)
[2017-11-24] MEDS: CEFAZOLIN IV 2,000 MG in SYRINGE 0 ML IV SCH (18:24)
[2017-11-24] MEDS ORDERED: NURSING VERBAL MED ORDER ONE (19:30)
--- NOTE | 2017-11-24 20:01 | Progress Note ---
Progress Note Date of Service November 24, 2017. Progress Note Medicine attending note: Blood pressure improved after giving home medication losartan 100 mg Last blood pressure reading 152/75 Repeat 164/64 Patient remains symptomatic Order to DC IV fluids, patient tolerating diet well Continue to monitor
[2017-11-24] MEDS: DOCUSATE SODIUM 100 MG CAP PO SCH (21:34)
[2017-11-24] MEDS: ASPIRIN 81 MG ECTAB PO SCH (21:34)
[2017-11-24] MEDS: CeleBREX 200 MG CAP PO SCH (21:35)
[2017-11-24] MEDS: DORZOLAMIDE HCL 2% OPH SOLN 10 ML BTL OP SCH (21:35)
[2017-11-24] MEDS: SIMVASTATIN 20 MG TAB PO SCH (21:35)
[2017-11-24] MEDS: LATANOPROST 0.005% OP SOLN 2.5 ML BTL OP SCH (22:33)
[2017-11-25] VITALS (9 sets, daily range): BP systolic 130–150; BP diastolic 52–71; PULSE 60–77; TEMP 36.6–36.9; O2SAT 92–96
[2017-11-25] MEDS: CEFAZOLIN IV 2,000 MG in SYRINGE 0 ML IV SCH (02:09)
[2017-11-25] MEDS: ACETAMINOPHEN 500 MG TAB PO SCH ×3 (05:57→21:06)
[2017-11-25] MEDS: OXYCODONE HCL IR 5 MG TAB (IMMEDIATE RELEASE) PO PRN (07:31)
--- NOTE | 2017-11-25 08:24 | Orthopedic Progress Note ---
Orthopedic Progress Note Date of Service November 25, 2017. Subjective Post OP Day: 1 Reports: feeling well, using PLASTIC SHEETING CUTTER, Denies: complaints, chest pain, SOB, nausea / vomiting, light headedness, calf pain, pain controlled w PO medications Objective calves soft nontender, N/V intact, capillary refill less than 2 sec., dressing C /D/I, A&O x3, toes mobile Date Time Temp Pulse Resp B/P (MAP) Pulse Ox O2 Delivery O2 Flow Rate FiO2 11/25/17 07:30 95 Room Air 11/25/17 03:41 36.9 64 16 132/66 (88) 95 Room Air 11/25/17 00:30 92 Room Air 2.0 11/25/17 00:02 36.9 74 14 135/63 (87) 92 Room Air 11/24/17 19:24 36.5 65 16 164/64 (97) 97 Room Air 11/24/17 16:00 Room Air 11/24/17 14:55 36.5 60 16 152/75 (100) 96 Room Air 11/24/17 13:50 60 16 137/71 (93) 95 11/24/17 12:55 72 16 172/77 (108) 96 11/24/17 11:50 57 17 166/70 (102) 96 11/24/17 11:20 70 16 181/76 (111) 99 Room Air 11/24/17 10:55 99 Room Air 11/24/17 10:50 36.5 61 17 178/87 (117) 98 Room Air 11/24/17 10:50 98 Room Air 11/24/17 10:43 59 98 11/24/17 10:43 59 11/24/17 10:41 152/78 11/24/17 10:39 36.4 98 Room Air 11/24/17 10:38 56 18 11/24/17 10:38 55 18 98 11/24/17 10:37 57 21 11/24/17 10:37 57 21 98 11/24/17 10:36 158/73 11/24/17 10:32 61 22 157/59 99 11/24/17 10:32 60 22 11/24/17 10:27 59 18 134/65 98 11/24/17 10:27 59 18 11/24/17 10:22 56 17 11/24/17 10:22 58 17 99 11/24/17 10:21 57 18 159/72 99 11/24/17 10:21 55 18 11/24/17 10:16 58 25 11/24/17 10:16 61 25 137/59 98 11/24/17 10:12 141/72 11/24/17 10:11 36.1 56 12 141/72 95 Nasal Cannula 2 11/24/17 10:11 60 19 96 11/24/17 10:11 60 19 Laboratory Results 24 Hours: Test 11/25/17 08:08 Assessment & Plan Assessment: POD #1, Left RAMIREZ Plan: PT/ OT DVT proph- ASA D/C planning- HH As per medicine Inhouse Planning Pain Management: Celebrex, Ultram, Morphine, PO Tylenol, Oxy IR DVT Prophylaxis: TEDs, SCDs, ASA Discharge Planning Discharge Planning: home with home health Pain Management: PO Tylenol, Oxy IR DVT Prophylaxis: TEDs, ASA Therapy: Physical Therapy, Occupational Therapy
[2017-11-25] MEDS ORDERED: LATANOPROST 0.005% OP SOLN 2.5 ML BTL OP SCH (09:00)
[2017-11-25 09:08] LABS: BASO % 0.4 %; BASO ABS # 0.06 K/uL (0-0.2); EOS % 1.8 %; EOS ABS # 0.27 K/uL (0-0.5); HEMATOCRIT 36.8 % (42-52); HEMOGLOBIN 12.8 g/dL (14.0-18.0); IG# 0.05 K/uL (0.00-0.02); LYMPH % 17.1 %; LYMPH ABS # 2.51 K/uL (1.2-3.4); MEAN CELL VOLUME 88.7 fL (80-100); MEAN CORPUSCULAR HEMOGLOBIN 30.8 pg (25-34); MEAN CORPUSCULAR HGB CONC 34.8 g/dl (32-36); MEAN PLATELET VOLUME 9.5 fL (7.4-10.4); MONO % 8.9 %; MONO ABS # 1.31 K/uL (0.11-0.59); NEUT % 71.5 %; NEUT ABS # 10.44 K/uL (1.4-6.5); PLATELET COUNT 292 K/uL (130-400); RED CELL DISTRIBUTION WIDTH CV 12.5 % (11.5-14.5); WHITE BLOOD COUNT 14.64 K/uL (4.8-10.8)
[2017-11-25] MEDS: INSULIN ASPART 100 UNITS/ML 3 ML PEN SC SCH ×4 (09:08→21:05)
[2017-11-25] MEDS: DORZOLAMIDE HCL 2% OPH SOLN 10 ML BTL OP SCH ×2 (09:22→20:53)
[2017-11-25] MEDS: PANTOprazole SOD 40 MG TAB PO SCH (09:23)
[2017-11-25] MEDS: ASCORBIC ACID 500 MG TAB PO SCH (09:23)
[2017-11-25] MEDS: TAMSULOSIN HCL 0.4 MG CAP PO SCH (09:23)
[2017-11-25] MEDS: AMLODIPINE BESYLATE 5 MG TAB PO SCH (09:24)
[2017-11-25] MEDS: DOCUSATE SODIUM 100 MG CAP PO SCH ×2 (09:24→20:54)
[2017-11-25] MEDS: CeleBREX 200 MG CAP PO SCH ×2 (09:25→20:55)
[2017-11-25] MEDS: ASPIRIN 81 MG ECTAB PO SCH ×2 (09:26→20:54)
[2017-11-25] MEDS: MULTIVITAMIN TAB PO SCH (09:26)
[2017-11-25] MEDS: LOSARTAN POTASSIUM 50 MG TAB PO SCH (09:26)
[2017-11-25 09:28] LABS: CALCIUM 8.2 mg/dl (8.5-10.1); CREATININE 1.18 mg/dl (0.60-1.40); POTASSIUM 3.4 mmol/L (3.5-5.1)
[2017-11-25] MEDS ORDERED: POTASSIUM CHLORIDE 10 MEQ TABCR PO STA (09:47)
[2017-11-25] MEDS: FINASTERIDE 5 MG TAB PO SCH (13:27)
--- NOTE | 2017-11-25 15:41 | Progress Note ---
Internal Med Progress Note Date of Service: November 25, 2017. Provider Documentation: SUBJECTIVE: The patient was seen and examined He is a status post left RAMIREZ and doing okay Denies to have any other symptoms No chest pain, shortness of breath, palpitations, nausea and/or vomiting OBJECTIVE: Vital Signs-as noted below Exam: General-no apparent distress at rest Eyes-normal ENT-normal Neck-supple Lungs-clear to auscultate Heart-regular, no murmur Abdomen-benign, distended, soft, bowel sounds present Extremities-negative for any edema Left lower extremity not examined left hip area is bandaged Neuro-alert, awake, oriented 3 No focal neuro deficit Lab data as noted below. ASSESSMENT & PLAN: This is a 77yo M with a PMH of HTN, HLD, DM II (diet controlled), BPH and osteoarthritis who is POD #0 s/p L RAMIREZ by Dr. Roberts. Left hip osteoarthritis POD #1 s/p L RAMIREZ: -Performed by Dr. Roberts -Doing well post-operatively management as per Ortho -no significant issue -monitor CBC for any blood loss DM II: -A1c 6.6 in September 2017 -Diet controlled -no issue with blood sugars HTN: -Slightly elevated 2/2 pain -Cont home amlodipine, losartan -BP remains controlled HLD: -Cont statin BPH: -Cont finasteride, tamsulosin DVT prophylaxis As per Ortho PCP: ANGELA Hodges Dispo: Per ortho Medically stable Vital Signs: Date Time Temp Pulse Resp B/P (MAP) Pulse Ox O2 Delivery O2 Flow Rate FiO2 11/25/17 12:13 36.7 60 18 130/62 (84) 96 Room Air 11/25/17 08:37 96 Room Air 11/25/17 08:32 36.6 67 17 132/52 (78) 96 Room Air 11/25/17 07:30 95 Room Air 11/25/17 03:41 36.9 64 16 132/66 (88) 95 Room Air 11/25/17 00:30 92 Room Air 2.0 11/25/17 00:02 36.9 74 14 135/63 (87) 92 Room Air 11/24/17 19:24 36.5 65 16 164/64 (97) 97 Room Air 11/24/17 16:00 Room Air Lab Results: Results Past 24 Hours Test 11/24/17 17:25 11/24/17 20:51 11/25/17 08:08 11/25/17 08:27 Range/Units Bedside Glucose 118 132 170 70-99 mg/dl White Blood Count 14.64 4.8-10.8 K/uL Red Blood Count 4.15 4.7-6.1 M/uL Hemoglobin 12.8 14.0-18.0 g/dL Hematocrit 36.8 42-52 % Mean Corpuscular Volume 88.7 80-100 fL Mean Corpuscular Hemoglobin 30.8 25-34 pg Mean Corpuscular Hemoglobin Concent 34.8 32-36 g/dl Platelet Count 292 130-400 K/uL Mean Platelet Volume 9.5 7.4-10.4 fL Neutrophils (%) (Auto) 71.5 % Lymphocytes (%) (Auto) 17.1 % Monocytes (%) (Auto) 8.9 % Eosinophils (%) (Auto) 1.8 % Basophils (%) (Auto) 0.4 % Neutrophils # (Auto) 10.44 1.4-6.5 K/uL Lymphocytes # (Auto) 2.51 1.2-3.4 K/uL Monocytes # (Auto) 1.31 0.11-0.59 K/uL Eosinophils # (Auto) 0.27 0-0.5 K/uL Basophils # (Auto) 0.06 0-0.2 K/uL RDW Standard Deviation 40.0 36.4-46.3 fL RDW Coefficient of Variation 12.5 11.5-14.5 % Immature Granulocyte % (Auto) 0.3 % Immature Granulocyte # (Auto) 0.05 0.00-0.02 K/uL Sodium Level 136 136-145 mmol/L Potassium Level 3.4 3.5-5.1 mmol/L Chloride Level 104 98-107 mmol/L Carbon Dioxide Level 25 21-32 mmol/L Anion Gap 7.0 3-11 mmol/L Blood Urea Nitrogen 15 7-18 mg/dl Creatinine 1.18 0.60-1.40 mg/dl Est Creatinine Clear Calc Drug Dose 51.6 ml/min Estimated GFR () 67.6 Estimated GFR (Non- 58.3 BUN/Creatinine Ratio 13.0 10-20 Random Glucose 163 70-99 mg/dl Calcium Level 8.2 8.5-10.1 mg/dl Test 11/25/17 12:16 Range/Units Bedside Glucose 162 70-99 mg/dl
[2017-11-25] MEDS: LATANOPROST 0.005% OP SOLN 2.5 ML BTL OP SCH (20:52)
[2017-11-25] MEDS: SIMVASTATIN 20 MG TAB PO SCH (21:07)
[2017-11-26] MEDS: ACETAMINOPHEN 500 MG TAB PO SCH (05:15)
[2017-11-26 06:39] LABS: BASO % 0.2 %; BASO ABS # 0.03 K/uL (0-0.2); EOS % 1.7 %; EOS ABS # 0.21 K/uL (0-0.5); HEMATOCRIT 32.7 % (42-52); HEMOGLOBIN 11.5 g/dL (14.0-18.0); IG# 0.04 K/uL (0.00-0.02); MEAN CELL VOLUME 87.7 fL (80-100); MEAN CORPUSCULAR HEMOGLOBIN 30.8 pg (25-34); MEAN CORPUSCULAR HGB CONC 35.2 g/dl (32-36); MEAN PLATELET VOLUME 8.8 fL (7.4-10.4); MONO % 8.8 %; NEUT ABS # 10.09 K/uL (1.4-6.5); PLATELET COUNT 217 K/uL (130-400); RED CELL DISTRIBUTION WIDTH CV 12.5 % (11.5-14.5); RED CELL DISTRIBUTION WIDTH SD 40.2 fL (36.4-46.3); WHITE BLOOD COUNT 12.47 K/uL (4.8-10.8)
[2017-11-26 07:16] LABS: CREATININE 0.83 mg/dl (0.60-1.40); POTASSIUM 4.4 mmol/L (3.5-5.1)
[2017-11-26 07:36] VITALS: O2SAT 96
[2017-11-26 07:40] VITALS: BP 163/70; PULSE 81; TEMP 36.8; O2SAT 97
--- NOTE | 2017-11-26 07:55 | Orthopedic Progress Note ---
Orthopedic Progress Note Date of Service November 26, 2017. Subjective Post OP Day: 2 Reports: feeling well, pain controlled w PO medications, Denies: complaints, chest pain, SOB, nausea / vomiting, light headedness, calf pain Objective calves soft nontender, N/V intact, capillary refill less than 2 sec., dressing C /D/I, A&O x3, toes mobile Date Time Temp Pulse Resp B/P (MAP) Pulse Ox O2 Delivery O2 Flow Rate FiO2 11/26/17 07:39 36.7 77 18 96 Room Air 11/26/17 07:36 96 Room Air 11/25/17 23:41 36.7 77 18 150/71 (97) 96 Room Air 11/25/17 20:30 Room Air 11/25/17 15:51 36.9 67 16 136/65 (88) 95 Room Air 11/25/17 12:13 36.7 60 18 130/62 (84) 96 Room Air 11/25/17 08:37 96 Room Air 11/25/17 08:32 36.6 67 17 132/52 (78) 96 Room Air Laboratory Results 24 Hours: Test 11/25/17 08:08 11/26/17 06:25 White Blood Count 14.64 K/uL 12.47 K/uL Red Blood Count 4.15 M/uL 3.73 M/uL Hemoglobin 12.8 g/dL 11.5 g/dL Hematocrit 36.8 % 32.7 % Mean Corpuscular Volume 88.7 fL 87.7 fL Mean Corpuscular Hemoglobin 30.8 pg 30.8 pg Mean Corpuscular Hemoglobin Concent 34.8 g/dl 35.2 g/dl Platelet Count 292 K/uL 217 K/uL Mean Platelet Volume 9.5 fL 8.8 fL Neutrophils (%) (Auto) 71.5 % 81.0 % Lymphocytes (%) (Auto) 17.1 % 8.0 % Monocytes (%) (Auto) 8.9 % 8.8 % Eosinophils (%) (Auto) 1.8 % 1.7 % Basophils (%) (Auto) 0.4 % 0.2 % Neutrophils # (Auto) 10.44 K/uL 10.09 K/uL Lymphocytes # (Auto) 2.51 K/uL 1.00 K/uL Monocytes # (Auto) 1.31 K/uL 1.10 K/uL Eosinophils # (Auto) 0.27 K/uL 0.21 K/uL Basophils # (Auto) 0.06 K/uL 0.03 K/uL Assessment & Plan Assessment: POD #2 Left RAMIREZ Plan: PT/ OT DVT proph- ASA D/C planning- home, patient was not accepted for HH, he has his and daughters to help him at home. As per medicine Inhouse Planning Pain Management: Celebrex, Ultram, Morphine, PO Tylenol, Oxy IR DVT Prophylaxis: TEDs, SCDs, ASA Discharge Planning Discharge Planning: home with home health Pain Management: PO Tylenol, Oxy IR DVT Prophylaxis: TEDs, ASA Therapy: Physical Therapy, Occupational Therapy
[2017-11-26] MEDS ORDERED: CLB200 PO (07:57)
[2017-11-26] MEDS ORDERED: ACET-24 PO (07:57)
[2017-11-26] MEDS ORDERED: ASPI-320 PO (07:57)
[2017-11-26] MEDS ORDERED: RXC5 PO (07:57)
--- NOTE | 2017-11-26 07:59 | Discharge Instructions ---
Discharge Instructions Date of Service November 26, 2017. Admission Reason for Admission: Left Hip Osteoarthritis Discharge Discharge Diagnosis / Problem: Left RAMIREZ Discharge Goals Goal(s): Improve function Activity Recommendations Activity Limitations: as noted below . Instructions / Follow-Up Instructions / Follow-Up ACTIVITY RECOMMENDATIONS: SELF CARE INSTRUCTIONS AFTER TOTAL HIP REPLACEMENT Until the incision and soft tissues around your hip have healed, there is a possibility that the hip prosthesis could dislocate. A. Observe the following precautions to prevent dislocation: 1. Don't bend your hip greater than 90 degrees. 2. Avoid crossing your legs or ankles while standing or lying. 3. Sit with your feet placed 6 inches apart. 4. When sitting, keep your knees below your hips. Sit on a firm surface, avoid deep, soft chairs and couches. Use an elevated toilet seat in the bathroom. 5. Don't bend over at the waist. Use a long handled shoehorn and a sock aid to help you put on your shoes and socks. A treasury associate can help you steel pickler objects that are too high or too low to reach. 6. Keep car riding to a minimum for at least one month after surgery. B. Your balance may be shaky for a while. Use crutches or a walker until directed by your doctor. C. Use hand rails when walking on stairs. D. Wear low heeled shoes with non-slip soles. E. Be sure that your floors are free of things that could trip you - throw rugs , electrical cords, small objects. Avoid wet and waxed floors, especially with crutches and canes. F. Try to walk several times a day with rest periods between. G. Continue with all the exercises taught to you in the hospital. Again, make walking a part of your daily routine. SPECIAL CARE INSTRUCTIONS: VERY IMPORTANT TO READ AND REVIEW A. You may still be at risk for phlebitis and blood clots. 1. Wear surgical stockings (VERONICA hose) for 2 weeks after surgery to improve circulation and reduce swelling. 2. Take Aspirin 81mg twice daily for 4 weeks or as directed by your doctor. This is your blood thinner. 3. High risk patients may be prescribed a stronger blood thinner if necessary. 4. If you are on Coumadin normally, your family doctor/billposting supervisor should monitor your blood work. Expect a phone call the day of or the day after bloodwork is drawn to adjust your dosage. B. You must take antibiotics before having dental work, bladder, bowel and other surgery. Your doctor will provide you with a permanent card to carry describing precautions. C. Call [facility] if you have a fever, redness or swelling around the incision, cloudy drainage from incision, or sudden increase in pain in your hip, not relieved by your regular pain medication. D. Please call the office at if you have any concerns or questions about your operation or recovery. * YOU MAY SHOWER, NO TUB BATHS UNTIL CLEARED BY YOUR DOCTOR. * WEAR VERONICA HOSE 20 HOURS PER DAY FOR 2 WEEKS. * YOU SHOULD USE A WALKER OR CRUTCHES FOR 2-4 WEEKS. THIS WILL HELP PREVENT STRAIN ON YOUR HIP MUSCLE AND ALLOW IT TO HEAL PROPERLY. YOU MAY WEAN TO A CANE TOLERATED. * MOST PATIENTS WILL HAVE HOME NURSING FOR THERAPY. IF YOU DECIDE TO DO OUTPATIENT PHYSICAL THERAPY, PLEASE SCHEDULE THIS 3 TIMES PER WEEK. * YOU MAY HAVE A LARGE, BAND-NICOLE LIKE DRESSING (SILVERON). THIS WILL REMAIN ON YOUR INCISION FOR 7 DAYS, THEN CAN BE REMOVED. IF INCISION IS LEAKING THROUGH DRESSING, PLEASE CALL THE OFFICE . FOLLOW UP VISIT: If appointment is not already scheduled: Please call [facility] to make a follow-up appointment for 2 weeks after your surgery to get your terry removed at . Current Hospital Diet Patient's current hospital diet: Diabetes Type 2 Diet Discharge Diet Recommended Diet: Regular Diet Procedures Procedures Performed: Left Total Hip Arthroplasty-Uncemented Pending Studies Studies pending at discharge: no Laboratory Results Hemoglobin A1c Test 10/15/17 11:55 Range/Units Estimated Average Glucose 143 mg/dl Hemoglobin A1c 6.6 H 4.5-5.6 % Medical Emergencies . Who to Call and When: Medical Emergencies: If at any time you feel your situation is an emergency, please call 911 immediately. . Non-Emergent Contact Non-Emergency issues call your: Primary Care Provider . "Provider Documentation" section prepared by David Amado. .
[2017-11-26] MEDS: INSULIN ASPART 100 UNITS/ML 3 ML PEN SC SCH (08:51)
[2017-11-26] MEDS: DORZOLAMIDE HCL 2% OPH SOLN 10 ML BTL OP SCH (08:52)
[2017-11-26] MEDS: CeleBREX 200 MG CAP PO SCH (08:53)
[2017-11-26] MEDS: AMLODIPINE BESYLATE 5 MG TAB PO SCH (08:54)
[2017-11-26] MEDS: ASCORBIC ACID 500 MG TAB PO SCH (08:54)
[2017-11-26] MEDS: TAMSULOSIN HCL 0.4 MG CAP PO SCH (08:55)
[2017-11-26] MEDS: ASPIRIN 81 MG ECTAB PO SCH (08:55)
[2017-11-26] MEDS: PANTOprazole SOD 40 MG TAB PO SCH (09:38)
[2017-11-26] MEDS: MULTIVITAMIN TAB PO SCH (09:38)
[2017-11-26] MEDS: LOSARTAN POTASSIUM 50 MG TAB PO SCH (09:39)
[2017-11-26] MEDS: DOCUSATE SODIUM 100 MG CAP PO SCH (09:39)
--- NOTE | 2017-11-26 15:54 | Progress Note ---
Internal Med Progress Note Date of Service: November 26, 2017. Provider Documentation: SUBJECTIVE: The patient was seen and examined He is a status post left RAMIREZ and doing okay Denies to have any other symptoms No chest pain, shortness of breath, palpitations, nausea and/or vomiting 11/26 Denies any complaints today Medically stable to be discharged OBJECTIVE: Vital Signs-as noted below Exam: General-no apparent distress at rest Eyes-normal ENT-normal Neck-supple Lungs-clear to auscultate Heart-regular, no murmur Abdomen-benign, distended, soft, bowel sounds present Extremities-negative for any edema Left lower extremity not examined left hip area is bandaged Neuro-alert, awake, oriented 3 No focal neuro deficit Lab data as noted below. ASSESSMENT & PLAN: This is a 77yo M with a PMH of HTN, HLD, DM II (diet controlled), BPH and osteoarthritis who is POD #0 s/p L RAMIREZ by Dr. Roberts. Left hip osteoarthritis POD #2 s/p L RAMIREZ: -Performed by Dr. Roberts -Doing well post-operatively management as per Ortho -no significant issue -monitor CBC for any blood loss -remains stable DM II: -A1c 6.6 in September 2017 -Diet controlled -no issue with blood sugars HTN: -Slightly elevated 2/2 pain -Cont home amlodipine, losartan -BP remains on the upper side and expected to improve HLD: -Cont statin BPH: -Cont finasteride, tamsulosin -no problem with Urination DVT prophylaxis As per Ortho PCP: ANGELA Hodges Dispo: Per ortho Medically stable to be discharged Vital Signs: Date Time Temp Pulse Resp B/P (MAP) Pulse Ox O2 Delivery O2 Flow Rate FiO2 11/26/17 07:40 36.8 81 18 163/70 (101) 97 Room Air 11/26/17 07:39 36.7 77 18 96 Room Air 11/26/17 07:36 96 Room Air 11/25/17 23:41 36.7 77 18 150/71 (97) 96 Room Air 11/25/17 20:30 Room Air Lab Results: Results Past 24 Hours Test 11/25/17 17:06 11/25/17 20:33 11/26/17 06:25 11/26/17 08:21 Range/Units Bedside Glucose 129 163 144 70-99 mg/dl White Blood Count 12.47 4.8-10.8 K/uL Red Blood Count 3.73 4.7-6.1 M/uL Hemoglobin 11.5 14.0-18.0 g/dL Hematocrit 32.7 42-52 % Mean Corpuscular Volume 87.7 80-100 fL Mean Corpuscular Hemoglobin 30.8 25-34 pg Mean Corpuscular Hemoglobin Concent 35.2 32-36 g/dl Platelet Count 217 130-400 K/uL Mean Platelet Volume 8.8 7.4-10.4 fL Neutrophils (%) (Auto) 81.0 % Lymphocytes (%) (Auto) 8.0 % Monocytes (%) (Auto) 8.8 % Eosinophils (%) (Auto) 1.7 % Basophils (%) (Auto) 0.2 % Neutrophils # (Auto) 10.09 1.4-6.5 K/uL Lymphocytes # (Auto) 1.00 1.2-3.4 K/uL Monocytes # (Auto) 1.10 0.11-0.59 K/uL Eosinophils # (Auto) 0.21 0-0.5 K/uL Basophils # (Auto) 0.03 0-0.2 K/uL RDW Standard Deviation 40.2 36.4-46.3 fL RDW Coefficient of Variation 12.5 11.5-14.5 % Immature Granulocyte % (Auto) 0.3 % Immature Granulocyte # (Auto) 0.04 0.00-0.02 K/uL Sodium Level 139 136-145 mmol/L Potassium Level 4.4 3.5-5.1 mmol/L Chloride Level 109 98-107 mmol/L Carbon Dioxide Level 27 21-32 mmol/L Anion Gap 3.0 3-11 mmol/L Blood Urea Nitrogen 15 7-18 mg/dl Creatinine 0.83 0.60-1.40 mg/dl Est Creatinine Clear Calc Drug Dose 73.4 ml/min Estimated GFR () 97.0 Estimated GFR (Non- 83.7 BUN/Creatinine Ratio 17.8 10-20 Random Glucose 145 70-99 mg/dl Calcium Level 8.0 8.5-10.1 mg/dl
--- NOTE | 2017-12-09 09:35 | DISCHARGE SUMMARY ---
HISTORY OF PRESENT ILLNESS: This is a 77-year-old male patient of Dr. Manuel, complaining of chronic left hip pain, longstanding, now progressively getting worse. The patient failed conservative treatment and elected to proceed with a left total hip arthroplasty. PAST MEDICAL HISTORY: Hypertension, hypercholesterolemia, osteoarthritis, sciatica, prostate cancer, and BPH. POSTOPERATIVE COURSE: The patient underwent a left total hip arthroplasty on 11/24/2017. He was followed closely with DVT prophylaxis in the form of aspirin, physical therapy, pain control, and medical consultation. The patient did very well postoperatively with no complications and was discharged on postoperative day #2. PHYSICAL EXAMINATION: On discharge, left hip Silverlon dressing was clean, dry and intact. There was no redness or drainage. He had no calf tenderness. Negative Homans sign. Neurologically and neurovascularly he is intact in his left lower extremity. DIAGNOSES: Status post left total hip arthroplasty with a history of hypertension, hypercholesterolemia, osteoarthritis, sciatica, prostate cancer, and benign prostatic hypertrophy. PLAN: The patient was discharged home. The patient's insurance did not accept any home health plans. So, he went home with the help of his family after discharge. He was discharged on his preadmission medications. He will continue aspirin for DVT prophylaxis as well as the addition of pain medications. The patient will follow up as an outpatient as scheduled.
== END 2017-11-26 11:17 | disposition home or self-care (01) | DRG 470 ==
LOC: C.ACU 05:15 → C.3E 07:02 → ENRESERV 10:30
PROVIDERS: ADMIT Orthopaedic Surgery Sports Medicine; ATTEND Orthopaedic Surgery Sports Medicine
PROC: 0SRB04Z Replacement of Left Hip Joint with Ceramic on Polyethylene Synthetic Substitute, Open Approach (ICD-10-PCS; principal; 2017-11-24 07:15)
DX: M16.12 Unilateral primary osteoarthritis, left hip (principal); I10 Essential (primary) hypertension; E78.5 Hyperlipidemia, unspecified; Z85.46 Personal history of malignant neoplasm of prostate; N40.0 Benign prostatic hyperplasia without lower urinary tract symptoms; E11.9 Type 2 diabetes mellitus without complications; Z96.641 Presence of right artificial hip joint; Z83.3 Family history of diabetes mellitus